=== PATIENT | male | born 1970 | race Caucasian/White ===

== ENCOUNTER → 2019-01-08 18:30 | Outpatient (CLI) | payer OTHER, SELFPAY | PROVIDERS: Family Provider Family Medicine; PCP Family Medicine; Visit Provider Physician Assistant | DX: J02.9 Acute pharyngitis, unspecified (principal) | CPT/HCPCS: 87070; 87077; 87147 ==

== ENCOUNTER 2020-12-29 18:45 | Observation (INO) | payer OTHER, SELFPAY ==
[2020-12-29] VITALS (10 sets, daily range): BP systolic 116–133; BP diastolic 70–81; PULSE 60–76; RESP 18; TEMP 36.9; O2SAT 96–99; BMI 29.2
--- NOTE | 2020-12-29 19:11 | ED_ITS ---
HPI - General Adult General Chief complaint: Extremity Problem,Nontraumatic Stated complaint: RIGHT LEG NUMBNESS Time Seen by Provider: 12/29/20 19:11 History of Present Illness HPI narrative: 50-year-old gentleman with no significant medical history comes in with right leg weakness and numbness. He states that 3 days ago he was having some of his usual chronic lumbar pain of the head in bothering him much of the week. He drove back from [employer], approximately [address] noted that the pain was slightly worse but was not noticing any strength or sensation differences. When he woke up the morning as he stood up to go to the bathroom notice that he almost stumbled because his right leg was so weak. Over the ensuing 2 days he has changed his gait to compensate for the weakness in the right leg and is now noticing some right calf pain that he believes is due to the gait change. He complains of numbness over the bottom of his foot from the sole to the entire plantar surface. On further questioning he states a couple of weeks ago he had similar findings with his right hand with some fine motor difficulty and some sensation loss in all fingertips that he had attributed to some spinal stenosis in his neck. He notes that that seems to be improving with physical therapy. He denies fever cough cold chills. No history of hypertension, hyperlipidemia, diabetes, cardiac issues or atrial fibrillation. He was initially seen at a walk-in clinic earlier today and they suggested emergency room evaluation. At this point his back pain has essentially entirely resolved. Related Data Home Medications Medication Instructions Recorded Confirmed ResMed Airsense 10 Auto CPAP #1 ea 06/05/18 01/08/19 Allergies Allergy/AdvReac Type Severity Reaction Status Date / Time No Known Drug Allergies Allergy Verified 12/29/20 19:07 Review of Systems Review of Systems Narrative: Remainder of complete review of systems is otherwise unremarkable except for that included in the HPI. Patient History Social History Smoking Status: Never smoker Smoking Status: Never smoker Exam Narrative Exam Narrative: General: Healthy appearing, in no acute distress. Able to give a complete and coherent history. Well-nourished well-developed HEENT: Moist mucous membranes, normal sclera with reactive pupils, Neck: No JVD, supple Respiratory: Lungs are clear to auscultation, no wheezing no rales no rhonchi. Full and symmetrical air movement Cardiac: Regular rate and rhythm no murmurs no bruits Abdomen: Soft, nontender, good bowel tones, no flank pain Skin: Warm and dry, no rashes Neurologic: Right leg weakness. He is unable to stand on just the right leg and cannot toe off. He has moderately decreased sensation over the entire plantar service and minor decreased sensation over the entire leg, non dermat omal distribution. No weakness or sensation loss to the upper extremities. Remainder of neurologic exam is entirely unremarkable. There is no tenderness along the spine and no skin changes. NIH score of 1 due to decreased sensation in the right lower extremity Extremities: No trauma, well perfused, He has easily palpable dorsalis pedis and posterior tibialis pulses bilaterally Psych: Cooperative, appropriate insight and affect Initial Vital Signs Initial Vital Signs: Vital Signs Temperature 98.4 F 12/29/20 19:07 Pulse Rate 74 12/29/20 19:07 Respiratory Rate 18 12/29/20 19:07 Blood Pressure 133/77 12/29/20 19:07 Pulse Oximetry 99 12/29/20 19:07 Course Orders Ordered: ED Orders 12/29/20 19:38 COVID19 - ADMIT (OIL DRILLER swab/PCR) Stat Complete Blood Count AUTO DIFF Stat Comprehensive Metabolic Panel Stat Lipid Panel Stat 12/29/20 19:43 CT angio head and neck Stat CT head/brain wo con Stat 12/29/20 22:43 MR stroke Stat Acetaminophen (Acetaminophen 325 Mg Tablet) 650 mg PO Q6HR PRN PRN Reason: Fever Aspirin (Aspirin Ec 81 Mg Tablet) 81 mg PO DAILY [facility] Atorvastatin Calcium (Atorvastatin 20 Mg Tablet) 80 mg PO BEDTIME [facility] Last Admin: 12/30/20 02:00 Dose: 80 mg Documented by: LEANDRA Clopidogrel Bisulfate (Clopidogrel 75 Mg Tablet) 75 mg PO DAILY [facility] Naloxone HCl (Naloxone 0.4 Mg/Ml Vial) 0.2 mg IV Q2MIN PRN PRN Reason: Opiate Reversal Discontinued Medications Aspirin (Aspirin 81 Mg Chew Tab) 324 mg PO NOW ONE Stop: 12/29/20 22:46 Last Admin: 12/29/20 22:55 Dose: 324 mg Documented by: LEANDRA Atorvastatin Calcium (Atorvastatin 20 Mg Tablet) 80 mg PO BEDTIME [facility] Vital Signs Vital signs: Vital Signs - 8 hr 12/29/20 20:24 12/29/20 20:30 12/29/20 21:00 Pulse Rate 68 68 72 Blood Pressure 116/70 Pulse Oximetry 97 97 97 12/29/20 21:30 12/29/20 22:00 12/29/20 22:30 Pulse Rate 64 70 63 Blood Pressure Pulse Oximetry 97 99 98 Medical Decision Making Lab Data Result diagrams: 12/29/20 19:38 12/29/20 19:38 Labs: Lab Results 12/29/20 12/29/20 12/29/20 Range/Units 19:38 19:38 19:38 WBC 6.0 (4.5-11.0) X10^3/uL RBC 4.76 (4.5-5.9) X10^6/uL Hgb 14.5 (13.5-17.5) g/dL Hct 43.5 (41-53) % MCV 91.3 (80-100) fL MCH 30.5 (26-34) PG MCHC 33.4 (30-36) % RDW 13.7 (11.6-14.8) % Plt Count 238 (150-400) X10^3/uL Neut % (Auto) 61.9 (50-75) % Lymph % (Auto) 25.0 (25-40) % [place] % (Auto) 7.3 (3-14) % Eos % (Auto) 5.3 H (2-4) % Baso % (Auto) 0.5 (0-2) % Neut # (Auto) 3700 (1880-7598) /uL Lymph # (Auto) 1500 (1473-2125) /uL [place] # (Auto) 400 (0-900) /uL Eos # (Auto) 300 (0-450) /uL Baso # (Auto) 0 (0-100) /uL Sodium 138 (137-145) mmol/L Potassium 4.2 (3.4-5.1) mmol/L Chloride 104 (98-107) mmol/L Carbon Dioxide 28 (22-32) mmol/L BUN 19 (9-20) mg/dL Creatinine 0.98 (0.66-1.25) mg/dL Estimated GFR > 60.0 (>60) mL/min BUN/Creatinine Ratio 19.4 (6-22) Glucose 99 (70-100) mg/dL Calcium 9.7 (8.4-10.2) mg/dL Total Bilirubin 0.5 (0.2-1.3) mg/dL AST 54 (17-59) IU/L ALT 65 H (<50) IU/L Alkaline Phosphatase 23 L (38-126) U/L Total Protein 7.7 (6.3-8.2) g/dL Albumin 4.3 (3.5-5.0) g/dL Globulin 3.4 (1.7-4.1) g/dL Albumin/Globulin Ratio 1.3 (1.0-2.8) Triglycerides 210 H (35-150) mg/dL Cholesterol 178 (140-199) mg/dL LDL Cholesterol, Calc 93 (<100) mg/dL HDL Cholesterol 43 (40-60) mg/dL SARS-CoV-2 (PCR) Negative (Negative) Urine Dip Bedside Urine Glucose Negative Bedside Urine Bilirubin - Negative Bedside Urine Ketone - Negative Urine Specific [place] 1.015 Bedside Urine Occult Blood - Negative Bedside Urine pH 6.0 Bedside Urine Protein - Negative Bedside Urine Urobilinogen - Negative Bedside Urine Nitrite - Negative Bedside Urine Leukocytes - Negative Esterase Point of care testing: Urine Dip Bedside Urine Glucose Negative Bedside Urine Bilirubin - Negative Bedside Urine Ketone - Negative Urine Specific [place] 1.015 Bedside Urine Occult Blood - Negative Bedside Urine pH 6.0 Bedside Urine Protein - Negative Bedside Urine Urobilinogen - Negative Bedside Urine Nitrite - Negative Bedside Urine Leukocytes - Negative Esterase Imaging Data CT scan - head: Radiologist's Impression: FINDINGS: Image quality: Excellent. CSF spaces: Basal cisterns are patent. No extra-axial fluid collections. Ventricles are normal in size and shape. Brain: No midline shift. No intracranial masses or hemorrhage. Dee-white matter interface is normal. Skull and face: Calvarium and visualized facial bones are intact, without suspicious lesions. Sinuses: Visualized sinuses and mastoids are clear. IMPRESSION: No acute intracranial finding. Dictated by: Terrell Rey M.D. on 12/29/2020 at 20:18 CTA head and neck: Radiologist's Impression: FINDINGS: Image quality: Excellent. BRAIN: CSF spaces: Ventricles are normal in size and shape. Basal cisterns are patent. No extra-axial fluid collections. Brain: No midline shift. No intracranial bleeds or masses. Dee-white matter interface appears intact. Skull and face: Calvarium and facial bones appear intact, without suspicious lesions. Orbits appear normal. Sinuses: Sinuses and mastoids are clear. HEAD CT ANGIOGRAPHY: Anterior circulation: Intracranial internal carotid arteries are normal in size and flow. The flow within the paired anterior cerebral arteries is normal and symmetric. The flow within the middle cerebral arteries is normal and symmetric. The anterior communicating artery is seen. No aneurysms are seen. Posterior circulation: Visualized portions of the vertebral arteries de monstrate normal caliber, and join to form a normal appearing basilar artery. Flow within the posterior cerebral arteries is normal and symmetric. No aneurysms are seen. NECK CT ANGIOGRAPHY: Carotid system: The great vessels demonstrate a conventional anatomy as they arise from the aortic arch. The origins of the common carotid arteries appear patent. The common carotid arteries demonstrate normal caliber and courses. The bifurcation regions are both widely patent. The internal carotid arteries demonstrate normal calibers and courses. Posterior circulation: Widely patent cervical vertebral arteries. Dominant left vertebral artery. Soft tissues: Visualized neck soft tissues demonstrate no suspicious abnormalities. Bones: No suspicious bony lesions. Visualized cervical spine appears normally aligned. IMPRESSION: No hemodynamically significant stenosis or large vessel occlusion of the major intracranial arterial circulation. No flow-limiting stenosis of the major extracranial arterial circulation. Any quantitative measurements of stenosis were performed using NASCET criteria. Dictated by: Terrell Rey M.D. on 12/29/2020 at 20:20 MDM Narrative Medical decision making narrative: 50-year-old gentleman presents with right leg weakness and numbness in a nondermatomal distribution most consistent with stroke rather than radicular symptoms. He has no back pain at this time. No evidence of acute infection. CT and CTA are unremarkable. Symptoms are minimal however at the age of 50 with obvious right lower extremity weakness and paresthesia further workup and definitive diagnosis is going to be entirely appropriate. With shared decision making he opted to stay in the hospital to complete of full stroke workup. He is given aspirin in the emergency department . Care is reviewed with the rachel Smith nurse practitioner. TPA was not administered as onset of symptoms were greater than 72 hours from presentation to the emergency department. Discharge Plan Departure Patient Disposition: Admitted as Observation Clinical Impression: Stroke Admit Date/Time: 12/29/20 22:46 Admit Provider: Reyna Castellon
--- NOTE | 2020-12-29 19:43 | DI.CT.S_ITS ---
PROCEDURE: CT ANGIO HEAD AND NECK INDICATIONS: Right leg weakness/numbness TECHNIQUE: After the administration of intravenous contrast, 1 mm thick sections acquired from the aortic arch through the [place]. Post-contrast 4.5 mm thick sections then re-acquired from the foramen magnum to the vertex. 3-dimensional shuaayx-kvmzusnva-kfewuxiuss (MIP) and/or volume rendering reformats were acquired of the central intracranial vasculature and neck separately. COMPARISON: None. FINDINGS: Image quality: Excellent. BRAIN: CSF spaces: Ventricles are normal in size and shape. Basal cisterns are patent. No extra-axial fluid collections. Brain: No midline shift. No intracranial bleeds or masses. Dee-white matter interface appears intact. Skull and face: Calvarium and facial bones appear intact, without suspicious lesions. Orbits appear normal. Sinuses: Sinuses and mastoids are clear. HEAD CT ANGIOGRAPHY: Anterior circulation: Intracranial internal carotid arteries are normal in size and flow. The flow within the paired anterior cerebral arteries is normal and symmetric. The flow within the middle cerebral arteries is normal and symmetric. The anterior communicating artery is seen. No aneurysms are seen. Posterior circulation: Visualized portions of the vertebral arteries demonstrate normal caliber, and join to form a normal appearing basilar artery. Flow within the posterior cerebral arteries is normal and symmetric. No aneurysms are seen. NECK CT ANGIOGRAPHY: Carotid system: The great vessels demonstrate a conventional anatomy as they arise from the aortic arch. The origins of the common carotid arteries appear patent. The common carotid arteries demonstrate normal caliber and courses. The bifurcation regions are both widely patent. The internal carotid arteries demonstrate normal calibers and courses. Posterior circulation: Widely patent cervical vertebral arteries. Dominant left vertebral artery. Soft tissues: Visualized neck soft tissues demonstrate no suspicious abnormalities. Bones: No suspicious bony lesions. Visualized cervical spine appears normally aligned. IMPRESSION: No hemodynamically significant stenosis or large vessel occlusion of the major intracranial arterial circulation. No flow-limiting stenosis of the major extracranial arterial circulation. Any quantitative measurements of stenosis were performed using NASCET criteria. Dictated by: Terrell Rey M.D. on 12/29/2020 at 20:20 Approved by: Terrell Rey M.D. on 12/29/2020 at 20:23
--- NOTE | 2020-12-29 19:43 | DI.CT.S_ITS ---
PROCEDURE: CT HEAD/BRAIN WO CON INDICATIONS: Right leg weakness TECHNIQUE: Noncontrast 4.5 mm thick angled axial sections acquired from the foramen magnum to the vertex, with coronal and sagittal reformats. For radiation dose reduction, the following was used: automated exposure control, adjustment of mA and/or kV according to patient size. COMPARISON: None. FINDINGS: Image quality: Excellent. CSF spaces: Basal cisterns are patent. No extra-axial fluid collections. Ventricles are normal in size and shape. Brain: No midline shift. No intracranial masses or hemorrhage. Dee-white matter interface is normal. Skull and face: Calvarium and visualized facial bones are intact, without suspicious lesions. Sinuses: Visualized sinuses and mastoids are clear. IMPRESSION: No acute intracranial finding. Dictated by: Terrell Rey M.D. on 12/29/2020 at 20:18 Approved by: Terrell Rey M.D. on 12/29/2020 at 20:19
[2020-12-29 19:46] LABS: Add Manual Diff / Slide Review NO; Basophils Absolute Auto 0 /uL (0-100); Basophils Percent Auto 0.5 % (0-2); Eosinophils Absolute Auto 300 /uL (0-450); Eosinophils Percent Auto 5.3 % (2-4); Hematocrit 43.5 % (41-53); Hemoglobin 14.5 g/dL (13.5-17.5); Lymphocytes Absolute Auto 1500 /uL (1100-4500); Mean Corpuscular HGB Conc 33.4 % (30-36); Mean Corpuscular Hemoglobin 30.5 PG (26-34); Mean Corpuscular Volume 91.3 fL (80-100); Monocytes Absolute Auto 400 /uL (0-900); Monocytes Percent Auto 7.3 % (3-14); Neutrophils Absolute Auto 3700 /uL (1500-7000); Neutrophils Percent Auto 61.9 % (50-75); Platelet Count 238 X10^3/uL (150-400); Red Blood Cell Count 4.76 X10^6/uL (4.5-5.9); Red Cell Distribution Width 13.7 % (11.6-14.8)
[2020-12-29 19:59] LABS: Alanine Aminotransferase 65 IU/L (<50); Albumin 4.3 g/dL (3.5-5.0); Albumin Globulin Ratio 1.3 (1.0-2.8); Alkaline Phosphatase 23 U/L (38-126); Aspartate Aminotransferase 54 IU/L (17-59); BUN Creatinine Ratio 19.4 (6-22); Bilirubin Total 0.5 mg/dL (0.2-1.3); Blood Urea Nitrogen 19 mg/dL (9-20); Calcium 9.7 mg/dL (8.4-10.2); Carbon Dioxide 28 mmol/L (22-32); Chloride 104 mmol/L (98-107); Cholesterol 178 mg/dL (140-199); Estimated Glomerular Filt Rate > 60.0 mL/min (>60); Globulin 3.4 g/dL (1.7-4.1); Glucose 99 mg/dL (70-100); HDL Cholesterol 43 mg/dL (40-60); HEMOLYSIS < 15 (0-50); LDL Cholesterol Calculated 93 mg/dL (<100); Potassium 4.2 mmol/L (3.4-5.1); Sodium 138 mmol/L (137-145); Total Protein 7.7 g/dL (6.3-8.2); Triglycerides 210 mg/dL (35-150)
[2020-12-29 20:36] LABS: COVID19 - ADMIT (NP swab/PCR) Negative (Negative)
--- NOTE | 2020-12-29 22:43 | DI.MRI.S_ITS ---
PROCEDURE: MR STROKE Pre- and post-contrast brain MRI, non-contrast brain MR angiogram, pre- and postcontrast neck MR angiogram INDICATIONS: stoke, admitted patient TECHNIQUE: Brain: Noncontrast axial T1 spin echo, axial T2 fast spin echo, sagittal and axial FLAIR, coronal T2 fast spin echo, axial gradient echo, axial diffusion and ADC through the brain. After the administration of contrast, axial 3D VIBE of the cranial vasculature and brain. Brain MRA: Non-contrast 3-D time of flight MR angiogram, with multiple xijdxmt-rjknnsofb-jjnhejuykh (MIP) reformats performed. Neck MRA: Axial and sagittal TruFISP through the neck. Coronal dynamic MR angiogram during administration of contrast in the arterial and venous phases, with 3-dimenstional memlzsy-rvllaoqtv-rmrjbtkfod (MIP) reformats constructed from subtraction images. COMPARISON: [facility], CT, CT ANGIO HEAD AND NECK, 12/29/2020, 19:59. FINDINGS: Image quality: Partially degraded by motion artifact. BRAIN: CSF spaces: Ventricles are normal in size and shape. Basal cisterns are patent. No extra-axial fluid collections. Brain: No intracranial bleeds or mass effects. Mild diffuse cerebral volume loss is present. Dee-white matter interface is normal. Diffusion weighted images show no acute ischemic insults. Brainstem appears normal. Normal intravascular flow voids are present. No abnormal intracranial enhancement. Skull and face: Calvarial marrow signal is normal. Orbits appear normal. Sinuses: Sinuses and mastoids are clear. BRAIN MR ANGIOGRAM: Anterior circulation: Intracranial internal carotid arteries are normal in size and enhancement. The flow within the paired anterior cerebral arteries is normal and symmetric. The flow within the middle cerebral arteries is normal and symmetric. The anterior communicating artery is seen. No stenoses, occlusions, or aneurysms. Posterior circulation: The visualized portions of the vertebral arteries demonstrate normal caliber, and join to form a normal appearing basilar artery. The flow within the posterior cerebral arteries is normal and symmetric. No stenoses, occlusions, or aneurysms. NECK MR ANGIOGRAM: Carotids: Great vessels demonstrate a conventional anatomy as they arise from the aortic arch. The origins of the common carotid arteries appear patent. The calibers and courses of both common carotid arteries are normal. The bifurcation regions appear normal bilaterally. The internal carotid arteries demonstrate normal course and caliber. Posterior circulation: The origins of the vertebral arteries appear patent. More superior portions of both vertebral arteries demonstrate normal course and caliber, and join to form a normal appearing basilar artery. Miscellaneous: Subclavian arteries appear patent. Pre-contrast images through the neck show no soft tissue abnormalities. IMPRESSION: BRAIN MRI: 1. Mild cerebral volume loss. 2. No acute process. No recent infarct. BRAIN MR ANGIOGRAM: Negative cerebral MR angiography. NECK MR ANGIOGRAM: 1. No internal carotid artery stenosis bilaterally. 2. Patent bilateral vertebral arteries. Dictated by: Conrad Dunaway M.D. on 12/30/2020 at 8:59 Approved by: Conrad Dunaway M.D. on 12/30/2020 at 9:03
[2020-12-29] MEDS: ASPIRIN 81 MG CHEW TAB 324 MG PO (22:55)
[2020-12-30] VITALS (23 sets, daily range): BP systolic 89–127; BP diastolic 58–80; PULSE 48–67; RESP 19–20; TEMP 36.3; O2SAT 94–98; BMI 29.2
--- NOTE | 2020-12-30 00:02 | DI.ECHO.S_ITS ---
[facility] +---------+ : : [address] : : [place] : : : : [id number] : : : : Phone: [phone]+ Echocardiogram Report + + :Name: RAZIA SAAVEDRA Study Date: 12/30/2020 Height: 69 in : :[facility] ReadingLocation: Weight: 198 lb: : Gender: Male BSA: 2.1 m2 : :: 1970 Age: 50 yrs BP: 99/63 mmHg: :Reason For Study: NEURO DEFICIT : :Ordering Physician: EDUARD, : :CE Performed By: Rose Marie Dixon : :Referring: CE CHAPA : + + Interpretation Summary Left ventricular systolic function appears normal with an estimated ejection fraction of 55 to 60% without any focal wall motion abnormality. Left ventricular volumes are at the upper limits of normal with an end-diastolic volume of 121 mL with probable normal wall thickness. Diastolic function is likely normal with normal filling pressures. The right ventricle appears normal in size and systolic function. Right ventricular systolic pressure is estimated at 29 mmHg with a CVP of 3 mmHg. Both atria are normal in size. The interatrial septum grossly appears intact and Doppler interrogation and injection of saline echo contrast shows no evidence for an interatrial shunt. There is mild mitral regurgitation but no other significant valvular abnormality. The ascending aorta and aortic arch are borderline increased in size. Procedure: A two-dimensional transthoracic echocardiogram with color flow and Doppler was performed. The study quality was technically adequate. The injection was performed through an intravenous line in the right arm. There is no prior echocardiogram noted for this patient. The patient was in sinus rhythm with heart rates between 54-70 bpm during the exam. Left Ventricle: Left ventricular size is at the upper limits of normal. The estimated left ventricular end diastolic volume is 121 ml. There is normal left ventricular wall thickness. Left ventricular systolic function appears normal without focal wall motion abnormalities. The ejection fraction is estimated to be 55-60%. Diastolic parameters suggest probable normal left ventricular diastolic function and normal filling pressures. Right Ventricle: The right ventricle is normal in size and function. Atria: Both atria are normal in size. Injection of contrast documented no interatrial shunt. Doppler interrogation and injection of saline echo contrast shows no evidence for an interatrial shunt. Mitral Valve: There is mild mitral annular calcification. There is mild mitral regurgitation. Aortic Valve: The aortic valve is trileaflet. The aortic valve opens well. There is no aortic valve stenosis. No aortic regurgitation is present. Tricuspid Valve: The tricuspid valve is normal in structure and function. There is trace tricuspid regurgitation. The right ventricular systolic pressure is estimated to be at least 29 mmHg based on an estimated right atrial pressure of 3 mm Hg. Pulmonic Valve: The pulmonic valve leaflets are thin and pliable; valve motion is normal. There is trace pulmonic regurgitation. Great Vessels: The aortic root is normal size. The ascending aorta is at the upper limits of normal in size. The aortic arch is at the upper limits of normal in size. The IVC is of normal diameter and collapses greater than 50% with a sniff. This suggests a low right atrial pressure of 3 mm Hg. Pericardium/ Pleura There is no pericardial effusion. There is no pleural effusion. MMode/2D Measurements & Calculations LVIDd: 5.7 cm LVOT diam: 2.0 cm LVIDs: 4.0 cm Ao root diam: 3.5 cm FS: 29.0 % asc Aorta Diam: 3.4 cm IVSd: 0.73 cm Ao Arch Diam (Prox Trans): 3.2 cm LVPWd: 0.81 cm LV tomlin. diameter/BSA (cm/m^2): 2.8 LV sys. diameter/BSA (cm/m^2): 2.0 LA A2 area: 19.0 cm2 RA long axis: 4.6 cm LA A4 area: 19.0 cm2 RA area: 15.7 cm2 LA length (vol): 5.3 cm RA vol: 45.1 ml LA vol: 58.2 ml RA : 21.9 ml/m2 LA vol index: 28.3 ml/m2 IVC diam: 1.4 cm RVD1 (basal): 3.8 cm TAPSE: 2.4 cm Doppler Measurements & Calculations Ao V2 max: 138.3 cm/sec LVOT Max Heriberto: 90.3 cm/sec Ao V2 mean: 102.4 cm/sec LV V1 max P.3 mmHg Ao max P.6 mmHg LV V1 VTI: 20.4 cm Ao mean P.6 mmHg TRENT(I,D): 2.1 cm2 Ao V2 VTI: 31.9 cm TRENT(V,D): 2.1 cm2 sev ratio: 0.64 TRENT indexed to BSA (cm^2/m^2): 1.0 MV E max heriberto: 63.1 cm/sec TR max heriberto: 255.0 cm/sec MV A max heriberto: 44.8 cm/sec TR max P.0 mmHg MV E/A: 1.4 PA V2 max: 101.7 cm/sec Med Peak E' Heriberto: 7.3 cm/sec PA V2 mean: 69.7 cm/sec E/E' med: 8.7 PA mean P.3 mmHg Lat Peak E' Heriberto: 11.4 cm/sec PA pr(Accel): 36.2 mmHg E/E' lat: 5.5 E/e' average: 7.1 MV dec time: 0.15 sec SV(LVOT): 67.0 ml Reading Physician:12:10 PM
[2020-12-30 01:17] LABS: Magnesium 2.1 mg/dL (1.6-2.3)
[2020-12-30 01:30] LABS: Hemoglobin A1C% w Est Avg Glu 5.8 % (4.0-6.0); Troponin I < 0.012 ng/mL (0.01-0.034)
[2020-12-30 01:50] LABS: Thyroid Stimulating Hormone 3.29 uIU/mL (0.47-4.68)
[2020-12-30] MEDS: ATORVASTATIN 20 MG TABLET 80 MG PO (02:00)
--- NOTE | 2020-12-30 04:29 | P.HP_ITS ---
History of Present Illness History of Present Illness Date Patient Seen: 12/30/20 Time Patient Seen: 00:05 Chief complaint: RIGHT LEG NUMBNESS Narrative: tAa Bright is a 50-year-old gentleman with a medical history PEDRO with CPAP, lumbar spinal stenosis, and anxiety who presented to the ED with right leg weakness and numbness. Patient reports that 3 days ago he was having some of his usual chronic lumbar pain which had been exacerbated this week. He drove back from [place], approximately [address] noted that the pain was slightly worse but was not noticing any strength or sensation differences. When he woke up the morning as he stood up to go to the bathroom notice that he almost stumbled because his right leg felt so weak. Over the ensuing 2 days he has changed his gait to compensate (walking straight -legged)for the weakness in the right leg (the knee feel like it will give out) and is now noticing some right calf pain that he believes is due to the gait change. He complains of numbness over the bottom of his foot from the sole to the entire plantar surface. On further questioning he states a couple of weeks ago he had similar findings with his right hand with some fine motor difficulty and some sensation loss in all fingertips that he had attributed to some reported spinal stenosis in his neck. The patient had imaging that reported lumbar spinal stenosis, but has not had imaging to verify cervical stenosis. He notes that that seems to be improving with physical therapy. He denies chest pain, shortness of breath, fever cough cold chills. No history of hypertension, hyperlipidemia, diabetes, cardiac issues or atrial fibrillation. The patient denies recent illness injury or trauma. He was seen at a walk-in clinic, and they suggested emergency room evaluation. At this point his back pain has essentially entirely resolved, but upon evaluation patient continues to walk straight leg Ed to avoid the right leg giving out. Patient's vital signs were all stable upon admit, CBC, and CMP were unremarkable, patient's liver enzymes demonstrated ALT 65, alk-phos of 23, triglycerides of 210, patient has an NIH score of 0 both in the ED and upon admit. Patient admitted for neurological deficit rule out TIA versus stroke. Patient History Medical History (Updated 12/30/20 @ 04:39 by RAUL Holloway) Anxiety Chronic back pain Lumbar spinal stenosis PEDRO on CPAP Surgical History (Updated 12/30/20 @ 04:39 by RAUL Holloway) No history of previous surgery Family & Social History Family History Mother Healthy adult Father Atrial fibrillation Heart disease Safety & Behavioral: Feels Safe in Current Yes, patient lives with his parents Environment Been Physically Hurt or No Threatened By a Person Tobacco & Substance use: Smoking Status Never smoker alcohol intake frequency 0-2 drinks per day Substance Use Type does not use Meds Home Medications and Allergies Home Medications Medication Instructions Recorded Confirmed Type ResMed Airsense 10 Auto CPAP #1 ea 06/05/18 01/08/19 History Allergies Allergy/AdvReac Type Severity Reaction Status Date / Time No Known Drug Allergies Allergy Verified 12/29/20 19:07 Review of Systems Review of Systems Narrative: All 12 point systems reviewed with the patient and are negative except otherwise documented. Exam Vital Signs (past 8 hours): - 12/29/20 20:30 12/29/20 21:00 12/29/20 21:30 Pulse Rate 68 72 64 Blood Pressure Pulse Oximetry 97 97 97 12/29/20 22:00 12/29/20 22:30 12/29/20 22:56 Pulse Rate 70 63 68 Blood Pressure 119/81 Pulse Oximetry 99 98 96 12/29/20 23:00 12/30/20 00:12 12/30/20 00:30 Pulse Rate 76 58 L 53 L Blood Pressure 116/76 105/66 Pulse Oximetry 97 97 96 12/30/20 01:00 12/30/20 01:01 12/30/20 01:30 Pulse Rate 53 L 53 L 61 Blood Pressure 119/63 121/71 Pulse Oximetry 96 94 97 12/30/20 02:00 12/30/20 02:30 12/30/20 03:00 Pulse Rate 60 48 L 59 L Blood Pressure 111/69 118/61 Pulse Oximetry 97 96 96 Oxygen Delivery Method Room Air Narrative Exam Narrative: General: Healthy appearing, in no acute distress. Able to give a complete and coherent history. Well-nourished well-developed HEENT: Moist mucous membranes, normal sclera with reactive pupils, Neck: No JVD, supple Respiratory: Lungs are clear to auscultation, no wheezing no rales no rhonchi. Full and symmetrical air movement Cardiac: Regular rate and rhythm no murmurs no bruits Abdomen: Soft, nontender, good bowel tones, no flank pain Skin: Warm and dry, no rashes Neurologic: Right leg weakness. He is unable to stand on just the right leg and cannot toe off. He has moderately decreased sensation over the entire plantar service and minor decreased sensation over the entire leg, non dermatomal distribution. No weakness or sensation loss to the upper extremities. Remainder of neurologic exam is entirely unremarkable. There is no tenderness along the spine and no skin changes. NIH score of 1 due to decreased sensation in the right lower extremity Extremities: No trauma, well perfused, He has easily palpable dorsalis pedis and posterior tibialis pulses bilaterally Psych: Cooperative, appropriate insight and affect Objective Labs Result Diagrams: 12/29/20 19:38 12/29/20 19:38 Labs: Laboratory Results - last 24 hr 12/29/20 12/29/20 12/29/20 19:38 19:38 19:38 WBC 6.0 RBC 4.76 Hgb 14.5 Hct 43.5 MCV 91.3 MCH 30.5 MCHC 33.4 RDW 13.7 Plt Count 238 Neut % (Auto) 61.9 Lymph % (Auto) 25.0 [place] % (Auto) 7.3 Eos % (Auto) 5.3 H Baso % (Auto) 0.5 Neut # (Auto) 3700 Lymph # (Auto) 1500 [place] # (Auto) 400 Eos # (Auto) 300 Baso # (Auto) 0 Sodium 138 Potassium 4.2 Chloride 104 Carbon Dioxide 28 BUN 19 Creatinine 0.98 Estimated GFR > 60.0 BUN/Creatinine Ratio 19.4 Glucose 99 Hemoglobin A1c Calcium 9.7 Magnesium Total Bilirubin 0.5 AST 54 ALT 65 H Alkaline Phosphatase 23 L Troponin I Total Protein 7.7 Albumin 4.3 Globulin 3.4 Albumin/Globulin Ratio 1.3 Triglycerides 210 H Cholesterol 178 LDL Cholesterol, Calc 93 HDL Cholesterol 43 TSH SARS-CoV-2 (PCR) Negative 12/30/20 12/30/20 12/30/20 00:55 00:55 00:55 WBC RBC Hgb Hct MCV MCH MCHC RDW Plt Count Neut % (Auto) Lymph % (Auto) [place] % (Auto) Eos % (Auto) Baso % (Auto) Neut # (Auto) Lymph # (Auto) [place] # (Auto) Eos # (Auto) Baso # (Auto) Sodium Potassium Chloride Carbon Dioxide BUN Creatinine Estimated GFR BUN/Creatinine Ratio Glucose Hemoglobin A1c 5.8 Calcium Magnesium 2.1 Total Bilirubin AST ALT Alkaline Phosphatase Troponin I < 0.012 Total Protein Albumin Globulin Albumin/Globulin Ratio Triglycerides Cholesterol LDL Cholesterol, Calc HDL Cholesterol TSH 3.29 SARS-CoV-2 (PCR) Assessment & Plan Assessment & Plan narrative: Patient is a 50-year-old male with a history of obstructive sleep apnea with CPAP, lumbar spinal stenosis, chronic low back pain, and anxiety who presented to the ED with right leg weakness acute onset. Patient admitted for acute neurological deficit, TIA versus stroke 1. Neurological deficit (right leg weakness, decreased sensation), TIA, acute, present on admission CBC/CMP WNL ,ALT 65, alk-phos of 23, triglycerides of 210, NIH score:0. -Head/Neck CTA: No hemodynamically significant stenosis or large vessel occlusion of the major intracranial arterial circulation.No flow-limiting stenosis of the major extracranial arterial circulation. -differential diagnosis TIA, stroke symptoms lasting greater than 24 hours, ischemic stroke, intracranial hemorrhage, subdural hematoma, epidural hematoma, seizure, brain tumor, migraine, vertigo, hypoglycemia, Irina Victor syndrome, multiple sclerosis, aortic dissection Vital signs q.4 hours, neuro checks PRN, NIH Qshift , notify provider for temp greater than 38 C, , heart rate >100 -treat systolic blood pressure>220 or diastolic blood pressure> 120 -activity as tolerated, fall precautions. -supplemental O2 to maintain> 94%. -Diet: Regular -fluids:0 -Medications: Aspirin 81 mg p.o. q.day within 48 hours, Plavix 75 mg daily. Lipitor 80mg -labs:BMP, PT/PTT/INR,TSH, troponin, Lipids, ProBNP -PT evaluation recommended -MR and echo tomorrow 2. Overweight as evidence by BMI of 29.2, acute on chronic, present on admission -consideration be given for dietary counseling Code status: Full code Seizure good decision maker: Spouse Alice JESUS PCR: Negative DVT/VTE prophylaxis: Plavix 75 mg, SCDs Disposition: Estimated length of stay less than 2 midnights I have utilized all available immediate resources to obtain, update, or review the patient's current medications. I confirmed that the patient's advanced care plan is present, Code status is documented and/or surrogate decision maker is listed in the patient's medical re cord.
[2020-12-30 04:47] LABS: Prothrombin Time 11.7 SECONDS (10.1-12.7)
[2020-12-30 04:50] LABS: PTT Partial Thromboplastin Tim 33 SECONDS (26.4-36.2)
[2020-12-30 04:51] LABS: BUN Creatinine Ratio 18.9 (6-22); Blood Urea Nitrogen 17 mg/dL (9-20); Calcium 9.2 mg/dL (8.4-10.2); Carbon Dioxide 30 mmol/L (22-32); Chloride 104 mmol/L (98-107); Estimated Glomerular Filt Rate > 60.0 mL/min (>60); Glucose 105 mg/dL (70-100); HEMOLYSIS 16 (0-50); Potassium 3.8 mmol/L (3.4-5.1); Sodium 139 mmol/L (137-145)
[2020-12-30 04:59] LABS: NT-proBNP (BNP-Adult 18+) 30 pg/mL (<125)
[2020-12-30] MEDS: ASPIRIN EC 81 MG TABLET PO (08:52)
[2020-12-30] MEDS: CLOPIDOGREL 75 MG TABLET PO (08:52)
[2020-12-30] MEDS: ACETAMINOPHEN 325 MG TABLET 650 MG PO (08:52)
--- NOTE | 2020-12-30 09:40 | PT.IIE ---
Medical History (Last Updated 12/30/20 @ 04:39 by Reyna Castellon [facility]) Anxiety Chronic back pain Lumbar spinal stenosis PEDRO on CPAP Physical Therapy Inpatient Evaluation/Re-Eval M1 PT/OT-IP Prior Functional Status Start: 12/30/20 11:59 Freq: NEEDED Status: Active Protocol: Document 12/30/20 09:40 AB (Rec: 12/30/20 12:13 AB [id number]) Medical Review Prior Functional Status Medical History Reviewed Yes Communication able to make needs known Mobility and Gait stated that he is independent with all mobilities and ambulation without AD Social History Household Members family Living Arrangements House Number of Floors (Floors) One Floor Number of Stairs To Enter/Railing? 1 step to enter Home Environment Standard Height Toilet,Walk in Shower,Tub/Shower Home Equipment Four Wheel Walker,Crutches, Hand Held Shower Additional Social History Comment has mom and brother at home to assist him M2 PT-IP Current Condition Start: 12/30/20 11:59 Freq: NEEDED Status: Active Protocol: Document 12/30/20 09:40 AB (Rec: 12/30/20 12:13 AB [id number]) Physical Therapy Current Condition Current Condition Evaluation Date 12/30/20 Treatment Diagnosis TIA; difficulty in walking Onset Date 12/29/20 M3 PT-IP Subjective Start: 12/30/20 11:59 Freq: NEEDED Status: Active Protocol: Document 12/30/20 09:40 AB (Rec: 12/30/20 12:13 AB [id number]) Subjective Physical Therapy Visit Type Type Initial Evaluation Visit Start Time 09:40 Visit Stop Time 10:05 Total Visit Minutes 25 Number of MONEY ROOM SUPERVISOR Visits 0 Physical Therapy Visit Comments Patient Comments agreeable to do PT Therapy Pain Assessment Pain When Pain Assessed At Rest Location Back Intensity 4 Scale Used R LBP Pain Management Techniques Distraction,Modification of Treatment,Re-positioning, Timing of Activity with Medications M4 PT-IP Mobility and Gait Start: 12/30/20 11:59 Freq: NEEDED Status: Active Protocol: Document 12/30/20 09:40 AB (Rec: 12/30/20 12:13 AB [id number]) PT-Bed Mobility Assessment Supine to Sit Supine to Sit Standby Assistance Sit to Supine Sit to Supine Standby Assistance PT-Transfer Assessment Sit to and From Stand Sit to and from Stand Standby Assistance Equipment Transfer Assistive Device None,Gait Belt Orthotic/Prosthetic Devices or Brace: No Comments Mobility Comments BP in supine: 125/77. c/o R low back pain and stated numbness on R lower that increases towards the foot area. palpation completed on low back with slight tenderness and muscle guarding L3-L5 paravertebral muscles. (-) SLR. completed supine to sit SBA and ambulated in room without AD SBA ~ 30 ft. presents with antalgic gait with decrease weigth bearing on RLE. pt attempted single leg stance on RLE and unable. educated pt on muscle contraction, weight shifting and stability. completed R single leg stance CGA to min A and cues and hold for ~ 5 sec. completed LE tapping on step stool and completed CGA. completed up/down step stool without AD initial min A on first set and completed again with CGA on 2nd set. pt requested to go back to bed. completed sit to supine SBA. positioned on bed. call light and table placed within reach . Gait Assessment Gait Gait Assistance Required: Standby Assistance Distance (Feet) 30 Able to Maintain Weight Bearing Status Yes During Gait Assistive Devices Assistive Device None,Gait Belt Orthotic/Prosthetic Devices or Brace: No Gait Deviations General Gait Pattern Antalgic,Decreased Stride Length,Decreased Feet Clearance Factors Limiting Gait Function Factors Limiting Gait Function Decreased Activity Tolerance, Decreased Strength,Pain,Poor Balance,Poor Safety Awareness Stair Climbing Assessment Evaluation Level of Assist On Stairs Standby Assistance,Contact Guard Assistance Devices Stair Climbing Assistive Devices None Technique/Endurance Stair Climbing Direction Ascend and Descend Stair Climbing Technique Step to Step Number of Steps Climbed 1 Query Text: Stair Climbing Set # Repetitions (reps) 2 PT-Balance Assessment Sitting Balance and Reactions Static Sitting Balance Ability Normal Dynamic Sitting Balance Ability Normal Standing Balance and Reactions Static Standing Balance Ability Good Dynamic Standing Balance Ability Fair Device Used without AD M5 PT-IP Objective Assessments Start: 12/30/20 11:59 Freq: NEEDED Status: Active Protocol: Document 12/30/20 09:40 AB (Rec: 12/30/20 12:13 AB [id number]) Orientation Orientation/Cognition Level of Alertness Alert Orientation Name,Place,Situation Language Function Ability No Deficits Noted Gross Range of Motion Lower Extremity ROM Assessment Within Functional Limits Strength Comments Strength Comments LLE: 4+/5 RLE: 4-/5 Coordination Assessment Gross Coordination Gross Coordination WNL Sensation Assessment Sensation Gross Sensation Right LE Impaired Sensation Description Numbness Comments Sensation Comments c/o RLE decrease in sensation/ numbness but able to feel light touch on BLE Muscle Tone Muscle Tone WNL Yes M6 PT-IP Treatment Start: 12/30/20 11:59 Freq: NEEDED Status: Active Protocol: Document 12/30/20 09:40 AB (Rec: 12/30/20 12:13 AB [id number]) Physical Therapy Treatment Education Education Provided Safety M7 PT-IP Assessment and Plan Start: 12/30/20 11:59 Freq: NEEDED Status: Active Protocol: Document 12/30/20 09:40 AB (Rec: 12/30/20 12:13 AB [id number]) PT Summary Assessment and Plan Potential Rehabilitation Potential Good Status of Condition at Evaluation Stable Summary Impairments Pain,ROM,Strength,Balance, Coordination,Sensation, Cognition,Bed Mobility, Transfers,Gait,Activity Tolerance Assessment Summary pt requiring SBA with bed mobility, transfers and ambulation without AD. slight weakness on RLE but able to mobilize SBA withotu AD. CGA with up/down one step. pt plans to go home and has his family to help him at home. pt will benefit from outpt PT to improve RLE strength, standing balance and ambulation. Goals Bed Mobility Goal Independent Transfer Goal Independent Gait Goal Independent Gait Distance 300 Other Goals up/down 1 step without AD mod I Days to Meet Goals 5 Frequency of Treatment Frequency Of Treatment Once a Day Treatment Plan Physical Therapy Treatment Plan Bed Mobility Training,Transfer Training,Gait Training, Therapeutic Exercise,Balance Retraining,Discharge Planning, Hot or Cold Pack,Neuromuscular Re-ed,Coordination Retraining ,Manual Therapy Recommendations To Nursing Amount of Assist Needed Standby Assistance Discharge Recommendations PT Discharge Recommendations Home with Assistance, Outpatient PT Transportation Needs at Discharge Private Vehicle
--- NOTE | 2020-12-30 11:42 | ST.IPIE ---
Visit Care Team Role Provider Type Sher Aquino MD Family Provider Non-Staff Primary Care Provider Specialty: Medical Address: [address] [place] [address], [id number] Email: Letty Andrew MD Emergency Provider Physician Specialty: Emergency Medicine Address: [address] [place] [address], [id number] Email: RAUL Holloway Admit Provider Physician Attending Provider Specialty: Medical Address: [address] [place] [address], [id number] Email: Past Medical History (Last Updated 12/30/20 @ 04:39 by RAUL Holloway) Anxiety (Medical) Chronic back pain (Medical) Lumbar spinal stenosis (Medical) No history of previous surgery (Medical) PEDRO on CPAP (Medical) ST IP Initial Evaluation Report NEGATIVE SPOTTER Clinical Swallow Evaluation Start: 12/30/20 11:34 Freq: Status: Active Protocol: Document 12/30/20 11:35 KILO (Rec: 12/30/20 11:42 KILO [id number]) Clinical Swallow Evaluation Session Time Visit Start Time 09:15 Visit Stop Time 09:30 Total Visit Minutes 15 Referral Referring Provider RAUL Holloway Reason for Referral Stroke Protocol Setting Assessment Location Acute Care Visit Type Note Type Initial evaluation Patient Information Identification Type Name,ID Card History Per H&P: Patient is a 50-year- old male with a history of obstructive sleep apnea with CPAP, lumbar spinal stenosis, chronic low back pain, and anxiety who presented to the ED with right leg weakness acute onset. Patient admitted for acute neurological deficit, TIA versus stroke. Subjective Observations Pt was awake and eating breakfast in bed upon NEGATIVE SPOTTER arrival. He denied deficits or changes in speech, expressive /receptive language, cognition , and swallow. Reported by Patient Current Diet Regular,Thin liquids Objective Assessment Mental Status Alert,Responsive,Cooperative Oral Integrity WFL Dentition Missing teeth Lip Function Within normal limits Observation of Lips at Rest Symmetrical Pucker Within normal limits Lip Retraction Within normal limits Alternating Pucker/Lip Retraction Within normal limits Tongue Function Within normal limits Observations of Tongue at Rest Within normal limits Tongue Protrusion Within normal limits Tongue Lateralization Within normal limits Jaw Function Within normal limits Observations of Jaw at Rest Within normal limits Jaw Opening Within normal limits Jaw Closing Within normal limits Jaw Lateralization Within normal limits Hard/Soft Palate Function Within normal limits Observations of Hard/Soft Palate Within normal limits Nasality Within normal limits Phonation Within normal limits Respiratory Sufficiency Within normal limits Food and Liquid Trials Position During Assessment Upright (90 degrees) Liquids Trialed Thin Solids Trialed Mechanical Soft,Regular Administration Type Straw,Self-feeding Oral Impairment Within normal limits Oral Phase Comments Pt is missing multiple upper and lower molars on left side. States this has minimal impact on mastication and I'm used to it. Does not restrict pt from consuming regular textures or any specific foods. Pharyngeal Impairment Within normal limits Pharyngeal Phase Comments No overt s/sx of aspiration were observed with all trials. Voice remained clear throughout. Fatigue/Endurance Endurance WNL [place] Swallow Protocol No Findings Swallowing Function Within normal limits Severity of Swallow Impairment Within normal limits Prognosis Good Based on Cognitive status,Age,Duration of symptoms/severity Impact on Safety and Functioning No limitations Recommendations Instrumental Assessment No Swallowing Treatment No Recommended Solids Regular Recommended Liquids Thin Other Recommendations No overt s/sx of dysphagia. Pt 's speech was clear and 100% intelligible. He was oriented x4 and participated appropriately in converstation . No sign of aphasia, dysarthria, apraxia of speech, dysphonia, or cognitive impairment observed. Pt will be discharged from Speech Therapy services. Medication Recommendations As Tolerated Discharge Recommendations Home Education Patient/Caregiver Education Described results of evaluation,Patient expressed understanding of evaluation
--- NOTE | 2020-12-30 14:01 | PC.NURSE ---
A&Ox4. VSS, bradycardia on tele. Back pain 4/10, relieved with PRN tylenol. IV removed, discharge paperwork reviewed. Questions answered. Patient will be driving himself home, he has had no narcotics during this hospital stay. Wheeled off of unit at 1400.
--- NOTE | 2020-12-30 14:45 | CM.DANOTE ---
DC Assessment: patient is a 50 yr old male who was admitted for Poss CVA- CM met with patient at the bed side and explained role. patient stated understanding. Patient currently lives with his family and plans on DC home with no needs. independent with ADLs and drives at baseline I: [place] Plan DC home with family and no needs- CM department will follow patient to assist with any DC planning needs that may arise. Geri Vasquez RN Discharge Planning/Care Management CM Discharge Assessment Start: 12/30/20 14:43 Freq: Status: Active Protocol: Document 12/30/20 14:43 HS (Rec: 12/30/20 14:45 HS [id number]) Discharge Planning Assessment Assigned Manager Programs Geri Vasquez RN DPOA/Assigned Designee Name Yaa Llanes Contact Information [phone] Advance Directives? No History Provided By Patient,Medical Record Prior Living Arrangements House Household Members family Type of transporation used prior to Drives own vehicle admit Comment patient plans on Driving himself home at DC Independent with ADL's Yes Is patient alert and oriented? Yes Caregiver for Another No Barriers to Discharge No Discharge Plan Home Referrals Initiated None needed Whiteboard Updated in Patient Room with Yes name and ext. # of Manager Programs Review Status In Process Next Review Type Continued Stay Review
== END 2020-12-30 14:00 | disposition home or self-care (01) ==
LOC: ED 19:11 → AC 22:47
PROVIDERS: Admitting Provider Nurse Practitioner Family; Emergency Provider Emergency Medicine; Family Provider Family Medicine; PCP Family Medicine; Visit Provider Nurse Practitioner Family
DX: R53.1 Weakness (principal); R20.0 Anesthesia of skin; R29.700 NIHSS score 0; G47.33 Obstructive sleep apnea (adult) (pediatric); F41.9 Anxiety disorder, unspecified; M48.061 Spinal stenosis, lumbar region without neurogenic claudication; G89.29 Other chronic pain; M54.5 Low back pain; E66.9 Obesity, unspecified; Z68.29 Body mass index [BMI] 29.0-29.9, adult; Z20.822 Contact with and (suspected) exposure to COVID-19
CPT/HCPCS: 36415; 70450; 70496; 70498; 70548; 70553; 80048; 80053; 80061; 81003; 83036; 83735; 83880; 84443; 84484; 85025; 85610; 85730; 87635; 92610; 93005; 93306; 97161; 99285; C9803; G0378; Q9967

== ENCOUNTER → 2021-05-18 17:49 | Outpatient (CLI) | payer OTHER, SELFPAY ==
[2020-12-30 08:30] VITALS: BMI 29.2
--- NOTE | 2021-05-18 | DI.MRI.S_ITS ---
PROCEDURE: MR LUMBAR SPINE WO CON INDICATIONS: Low back pain, unspecified TECHNIQUE: Noncontrast sagittal T1 spin echo and T2 fast echo, sagittal STIR, axial T1 and T2 fast spin echo through the lumbar spine. In cases with scoliosis, additional coronal T2 fast spin echo may be performed. COMPARISON: [facility] [place], CR, XR LUMBAR SPINE 2 OR 3 VIEWS, 05/12/2021, 16:11. FINDINGS: Image quality: Excellent. Alignment and Curvature: 5 lumbar type vertebral bodies are present by plain film. There is loss of normal lumbar lordosis. There is mild grade 1 retrolisthesis of L3 on L4, L4 on L5, and L5 on S1. Bone Marrow: Marrow is of normal overall signal. No acute vertebral body compression fractures. Mild reactive signal within the endplates adjacent to the L1-L2, L2-L3, L3-L4, L4-L5, and L5-S1 intervertebral discs. Spinal Cord: Conus medullaris terminates at the mid L2 level. Visualized cord demonstrates normal signal and size. Paraspinous Soft Tissues: No paravertebral masses. T12-L1: Normal appearance. L1-L2: Normal appearance. L2-L3: Normal appearance. L3-L4: Mild disc height loss and desiccation. Mild diffuse disc bulge. Mild facet and ligamentum flavum hypertrophy. Mild epidural lipomatosis. Mild canal stenosis. Mild bilateral foraminal stenosis. L4-L5: Mild disc height loss and desiccation. Mild diffuse disc bulge. Mild facet and ligamentum flavum hypertrophy. Mild epidural lipomatosis. Mild canal stenosis. Moderate bilateral foraminal stenosis. L5-S1: Moderate disc height loss and desiccation. Mild diffuse disc bulge. Mild bilateral facet hypertrophy. Mild canal stenosis. Moderate left and mild right foraminal stenosis. IMPRESSION: 1. Multilevel degenerative disc and facet disease, as well as ligamentum flavum hypertrophy and epidural lipomatosis. 2. Mild multilevel canal stenosis. 3. Multilevel foraminal stenoses, worst at L4-L5 and L5-S1, where there are moderate foraminal stenosis. Dictated by: Conrad Dunaway M.D. on 05/19/2021 at 8:40 Approved by: Conrad Dunaway M.D. on 05/21/2021 at 15:06
== END ==
PROVIDERS: Family Provider Family Medicine; PCP Family Medicine; Referring Provider Orthopaedic Surgery Orthopaedic Surgery of the Spine; Visit Provider Orthopaedic Surgery Orthopaedic Surgery of the Spine
DX: M54.50 Low back pain, unspecified (principal); M51.36 Other intervertebral disc degeneration, lumbar region; M48.061 Spinal stenosis, lumbar region without neurogenic claudication; M51.37 Other intervertebral disc degeneration, lumbosacral region; M48.07 Spinal stenosis, lumbosacral region; M46.06 Spinal enthesopathy, lumbar region; E88.2 Lipomatosis, not elsewhere classified
CPT/HCPCS: 72148

== ENCOUNTER 2021-07-16 14:26 | Outpatient (CLI) | payer OTHER, SELFPAY ==
[2020-12-30 08:30] VITALS: BMI 29.2
== END 2021-07-16 18:00 ==
LOC: PHYS 14:26
PROVIDERS: Family Provider Family Medicine; PCP Family Medicine; Referring Provider Family Medicine; Visit Provider Family Medicine
DX: M54.50 Low back pain, unspecified (principal); G89.29 Other chronic pain; R29.898 Other symptoms and signs involving the musculoskeletal system; R20.2 Paresthesia of skin
CPT/HCPCS: 95886; 95909